=== PATIENT | female | born 1990 | race American Indian/Alaskan Native ===

== ENCOUNTER 2017-10-20 21:07 | Emergency (ER) | payer OTHER ==
[2017-10-20] MEDS ORDERED: TETRACAINE HCL 0.5% 2ML OPTH ONE (21:31)
[2017-10-20] MEDS ORDERED: FLUORESCEIN SODIUM 0.6 MG/WRAP ONE (21:31)
--- NOTE | 2017-10-20 22:25 | ER ---
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 Transition of care: patient was not received from another setting of care. Onset of symptoms was October 20, 2017. Initial Sepsis Screen: Does the patient meet any 2 criteria? No. Patient's initial sepsis screen is negative. Does the patient have a suspected source of infection? No. Patient's initial sepsis screen is negative. Care prior to arrival: None. 21:12 Method Of Arrival: Ambulatory 21:12 Acuity: ERVIN 2 aj Triage Assessment: 21:14 General: Appears in no apparent distress. comfortable, Behavior is calm, cooperative, aj appropriate for age. Pain: Complains of pain in left eye. EENT: Reports pain in left eye. Neuro: Level of Consciousness is awake, alert, obeys commands, Oriented to person, place, time, situation. Respiratory: Airway is patent Trachea midline Respiratory effort is even, unlabored, Respiratory pattern is regular, symmetrical. Derm: Skin is intact, is healthy with good turgor, Skin is pink, warm \T\ dry. normal. 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 - Social history:: Smoking status: Patient uses tobacco products, denies chronic smoking, but will smoke occasionally. - Family history:: not pertinent. Screenin:02 Abuse screen: Denies threats or abuse. Nutritional screening: No deficits noted. tl2 Tuberculosis screening: No symptoms or risk factors identified. Fall Risk None identified. Assessment: 21:20 General: Appears in no apparent distress. uncomfortable, Behavior is calm, cooperative, tl2 appropriate for age. Pain: Complains of pain in left eye. Neuro: Level of Consciousness is awake, alert, obeys commands, Oriented to person, place, time, situation. Cardiovascular: Denies chest pain. Respiratory: Airway is patent Respiratory effort is even, unlabored, Respiratory pattern is regular, symmetrical. GI: No signs and/or symptoms were reported involving the gastrointestinal system. : No signs and/or symptoms were reported regarding the genitourinary system. EENT: Eyes are tearing on outer aspect of conjuctiva of left eye, iris of left eye and inner aspect of conjunctiva of left eye Sclera/Cornea are reddened in outer aspect of conjuctiva of left eye, iris of left eye and inner aspect of conjunctiva of left eye. Derm: Skin is pink, warm \T\ dry. 23:02 Reassessment: Patient appears in no apparent distress at this time. Patient and/or tl2 family updated on plan of care and expected duration. Pain level reassessed. Patient is alert, oriented x 3, equal unlabored respirations, skin warm/dry/pink. pt verbalized understanding of discharge instructions, need for follow up and prescription usage. Vital Signs: 21:14 BP 146 / 93; Pulse 112; Resp 18; Temp 97.6; Pulse Ox 98% on R/A; Weight 92.99 kg; aj Height 5 ft. 8 in. (172.72 cm); Pain 2/10; 21:14 Body Mass Index 31.17 (92.99 kg, 172.72 cm) aj Visual Acuity: 21:35 Left Eye Visual acuity 20/15, ; Right Eye Visual acuity 20/15, ; Both Eyes Visual mt acuity 20/10; Without Lenses; ED Course: 21:11 Patient arrived in ED. aj 21:13 Triage completed. aj 21:14 Arm band placed on left wrist. Patient placed in waiting room. aj 21:36 David Aguilar MD is Attending Physician. ranjeet 22:23 Marc Carr MD is Referral Physician. ranjeet 22:35 Keya Burnham RN is Primary Nurse. tl2 23:02 Patient has correct armband on for positive identification. tl2 23:02 No provider procedures requiring assistance completed. Patient did not have IV access tl2 during this emergency room visit. Administered Medications: 22:35 Drug: Tetracaine Solution (0.5 %) 2 ml Route: Topical; Site: left eye; tl2 23:03 CANCELLED (Do not have in stock): Bacitracin Ointment (500 unit/g) 1 application tl2 Topical once 23:03 Drug: Gentamicin Drops 0.3 % 2 drops Route: Ophthalmic; Site: left eye; tl2 Outcome: 22:24 Discharge ordered by . ranjeet 23:02 Discharged to home ambulatory. tl2 23:02 Condition: stable 23:02 Discharge instructions given to patient, Instructed on discharge instructions, follow up and referral plans. medication usage, Demonstrated understanding of instructions, follow-up care, medications, Prescriptions given X 2. 23:03 Patient left the ED. tl2 Signatures: Lisa Tiwari, RN RN David Witt MD MD cha Knox, Taylor, RN RN tl2 Tana Jara mt Corrections: (The following items were deleted from the chart) 23:02 22:38 Bacitracin Ointment (500 unit/g) 1 application Topical in affected area tl2 tl2
--- NOTE | 2017-10-20 22:25 | EDPHYS ---
Physician Documentation [facility] Name: Chantal Meraz Age: 27 yrs Sex: Female : 1990 Arrival Date: 10/20/2017 Time: 21:11 Bed 8 Private MD: ED Physician David Aguilar HPI: 10/20 22:19 This 27 yrs old Female presents to ER via Ambulatory with complaints of ranjeet Eye Problem. 22:19 The patient is experiencing foreign body sensation, pain, redness, The patient ranjeet sustained an abrasion, to the left eye. Onset: The symptoms/episode began/occurred today. Duration: the symptoms are continuous. Aggravated by nothing. Alleviated by nothing. Associated signs and symptoms: Pertinent positives: None. Patient does not utilize any form of vision correction. Severity of symptoms: At their worst the symptoms were mild moderate in the emergency department the symptoms are unchanged. The patient has not experienced similar symptoms in the past. 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 - Social history:: Smoking status: Patient uses tobacco products, denies chronic smoking, but will smoke occasionally. - Family history:: not pertinent. ROS: 22:19 Constitutional: Negative for fever, chills, and weight loss, ENT: Negative for injury, ranjeet pain, and discharge, Neck: Negative for injury, pain, and swelling, Cardiovascular: Negative for chest pain, palpitations, and edema, Respiratory: Negative for shortness of breath, cough, wheezing, and pleuritic chest pain, Abdomen/GI: Negative for abdominal pain, nausea, vomiting, diarrhea, and constipation, Back: Negative for injury and pain, : Negative for injury, bleeding, discharge, and swelling, MS/Extremity: Negative for injury and deformity, Skin: Negative for injury, rash, and discoloration, Neuro: Negative for headache, weakness, numbness, tingling, and seizure, Psych: Negative for depression, anxiety, suicide ideation, homicidal ideation, and hallucinations, Allergy/Immunology: Negative for hives, rash, and allergies, Endocrine: Negative for neck swelling, polydipsia, polyuria, polyphagia, and marked weight changes, Hematologic/Lymphatic: Negative for swollen nodes, abnormal bleeding, and unusual bruising. 22:19 Eyes: Positive for foreign body sensation, pain, of the iris of left eye. Exam: 22:19 Constitutional: This is a well developed, well nourished patient who is awake, alert, ranjeet and in no acute distress. Head/Face: Normocephalic, atraumatic. ENT: Nares patent. No nasal discharge, no septal abnormalities noted. Tympanic membranes are normal and external auditory canals are clear. Oropharynx with no redness, swelling, or masses, exudates, or evidence of obstruction, uvula midline. Mucous membranes moist. Neck: Trachea midline, no thyromegaly or masses palpated, and no cervical lymphadenopathy. Supple, full range of motion without nuchal rigidity, or vertebral point tenderness. No Meningismus. Chest/axilla: Normal chest wall appearance and motion. Nontender with no deformity. No lesions are appreciated. Cardiovascular: Regular rate and rhythm with a normal S1 and S2. No gallops, murmurs, or rubs. Normal PMI, no JVD. No pulse deficits. Respiratory: Lungs have equal breath sounds bilaterally, clear to auscultation and percussion. No rales, rhonchi or wheezes noted. No increased work of breathing, no retractions or nasal flaring. Abdomen/GI: Soft, non-tender, with normal bowel sounds. No distension or tympany. No guarding or rebound. No evidence of tenderness throughout. Back: No spinal tenderness. No costovertebral tenderness. Full range of motion. Skin: Warm, dry with normal turgor. Normal color with no rashes, no lesions, and no evidence of cellulitis. MS/ Extremity: Pulses equal, no cyanosis. Neurovascular intact. Full, normal range of motion. Neuro: Awake and alert, GCS 15, oriented to person, place, time, and situation. Cranial nerves II-XII grossly intact. Motor strength 5/5 in all extremities. Sensory grossly intact. Cerebellar exam normal. Normal gait. Psych: Awake, alert, with orientation to person, place and time. Behavior, mood, and affect are within normal limits. 22:19 Eyes: Periorbital structures: appear normal, no acute changes, Pupils: no acute changes, equal, round, and reactive to light and accomodation, Extraocular movements: intact throughout, Conjunctiva: injected, Corneas: abrasion, that is small, on the left, at 2 o'clock, foreign body, Sclera: Anterior chamber: Lids and lashes: funduscopic exam reveals Visual marlow: Nystagmus: Vital Signs: 21:14 BP 146 / 93; Pulse 112; Resp 18; Temp 97.6; Pulse Ox 98% on R/A; Weight 92.99 kg; aj Height 5 ft. 8 in. (172.72 cm); Pain 2/10; 21:14 Body Mass Index 31.17 (92.99 kg, 172.72 cm) aj Visual Acuity: 21:35 Left Eye Visual acuity 20/15, ; Right Eye Visual acuity 20/15, ; Both Eyes Visual mt acuity 20/10; Without Lenses; MDM: 21:36 Patient medically screened. [facility] 22:26 Data reviewed: vital signs, nurses notes. [facility] 10/20 22:16 Order name: Eye Tray; Complete Time: 22:35 [facility] 10/20 22:26 Order name: Misc. Order: patch eye; Complete Time: 22:38 [facility] Administered Medications: 22:35 Drug: Tetracaine Solution (0.5 %) 2 ml Route: Topical; Site: left eye; tl2 23:03 CANCELLED (Do not have in stock): Bacitracin Ointment (500 unit/g) 1 application tl2 Topical once 23:03 Drug: Gentamicin Drops 0.3 % 2 drops Route: Ophthalmic; Site: left eye; tl2 Disposition: 10/20/17 22:24 Discharged to Home. Impression: Foreign body in cornea, left eye - removed. - Condition is Stable. - Discharge Instructions: Eye Foreign Body, Eye Foreign Body, [id number]. - Prescriptions for Tylenol- Codeine #3 300-30 mg Oral Tablet - take 2 tablets by ORAL route every 6 hours As needed; 24 tablet. Bacitracin 500 unit/gram Ophthalmic Ointment - instill 0.5 inch by OPHTHALMIC route every 6 hours; 3.5 tube. - Medication Reconciliation Form, Thank You Letter, Antibiotic Education, Prescription Opioid Use, Work release form form. - Follow up: Marc Carr MD; When: Tomorrow; Reason: Recheck today's complaints, Continuance of care, Re-evaluation by your physician. - Problem is new. - Symptoms have improved. Signatures: Lisa Tiwari, RN RN David Witt MD MD cha Knox, Taylor RN RN tl2 Corrections: (The following items were deleted from the chart) 23:03 22:19 Bacitracin Ointment (500 unit/g) 1 application Topical once ordered. ranjeet tl2 23:03 22:38 Bacitracin Ointment (500 unit/g) 1 application Topical once given. tl2 tl2 23:03 23:02 Bacitracin Ointment (500 unit/g) 1 application Topical once ordered. tl2 tl2 23:03 22:24 10/20/2017 22:24 Discharged to Home. Impression: Foreign body in cornea, left eye tl2 - removed. Condition is Stable. Forms are Medication Reconciliation Form, Thank You Letter, Antibiotic Education, Prescription Opioid Use. Follow up: Marc Carr; When: Tomorrow; Reason: Recheck today's complaints, Continuance of care, Re-evaluation by your physician. Problem is new. Symptoms have improved. ranjeet
[2017-10-20] MEDS ORDERED: BACITRACIN OINTMENT 15 GM TUBE TOP ONE (22:37)
[2017-10-20] MEDS ORDERED: GENTAMICIN 0.3% OPTH DROP 5ML ONE (22:48)
== END 2017-10-20 23:03 | disposition home or self-care (01) ==
LOC: ER 21:07
PROC: 08C9XZZ Extirpation of Matter from Left Cornea, External Approach (ICD-10-PCS; principal; 2017-10-20)
DX: T15.02XA Foreign body in cornea, left eye, initial encounter (principal); X58.XXXA Exposure to other specified factors, initial encounter; Y93.89 Activity, other specified; Y92.9 Unspecified place or not applicable; Y99.9 Unspecified external cause status
CPT/HCPCS: 99283